=== PATIENT | female | born 1955 | race Caucasian/White ===

== ENCOUNTER 2018-08-01 09:41 | Emergency (ER) | payer SELFPAY ==
[2018-08-01 10:01] VITALS: BP 123/72
--- NOTE | 2018-08-01 12:37 | UC ---
Abdominal Pain Female HPI - HPI Summary HPI Summary: Patient arrived last night from [facility] to visit her sister. Reports she has had 5 days of worsening left lower quadrant pain that has now become more diffuse. Denies fever. Has had some nausea and left flank pain. No urinary symptoms. No blood per rectum. No diarrhea. Reports a history of recurrent diverticulitis. States she usually treats her symptoms conservatively and they resolve without intervention however occasionally she needs antibiotics. She usually takes doxycycline due to multiple antibiotic allergies and this works well for her. - History of Current Complaint Chief Complaint: UCAbdominalPain Stated Complaint: BOWEL ALONZO Time Seen by Provider: 08/01/18 12:16 Hx Obtained From: Patient, Family/Landscape Laborer - SISTER Onset/Duration: Gradual Onset, Lasting Days, Still Present Timing: Constant Severity Initially: Mild Severity Currently: Moderate Pain Intensity: 10 - SITTING COMFORTABLY IN EXAM ROOM IN NAD Pain Scale Used: 0-10 Numeric Radiates: Yes Radiates to: Flank Character: Sharp Aggravating Factor(s): Nothing Alleviating Factor(s): Nothing Associated Signs and Symptoms: Positive: Back Pain, Decreased Appetite, Nausea. Negative: Fever, Urinary Symptoms, Vomiting, Diarrhea Allergies/Adverse Reactions: Allergies Allergy/AdvReac Type Severity Reaction Status Date / Time latex Allergy Rash Verified 08/01/18 10:02 Penicillins Allergy Hives Verified 08/01/18 10:02 im injection fluids Allergy Rash Uncoded 08/01/18 10:03 most antibiotics Allergy ibs Uncoded 08/01/18 10:02 PMH/Surg Hx/FS Hx/Imm Hx GI/ History: Gastroesophageal Reflux, Diverticulitis Other GI/ History: IBS Cancer History: Breast Cancer - Surgical History Surgical History: Yes Surgery Procedure, Year, and Place: breast ca bilat mastectomy - Social History Alcohol Use: None Substance Use Type: None Smoking Status (MU): Never Smoked Tobacco Review of Systems All Other Systems Reviewed And Are Negative: Yes Constitutional: Positive: Negative ENT: Positive: Negative Respiratory: Positive: Negative Cardiovascular: Positive: Negative Gastrointestinal: Positive: Abdominal Pain, Nausea Genitourinary: Positive: Negative Physical Exam Triage Information Reviewed: Yes Appearance: Well-Appearing, No Pain Distress, Well-Nourished Vital Signs: Initial Vital Signs Temp 99.2 F 08/01/18 09:55 Pulse 60 08/01/18 09:55 Resp 16 08/01/18 09:55 BP 123/72 08/01/18 09:55 Pulse Ox 100 08/01/18 09:55 Laboratory Tests 08/01/18 12:46 POC Urine Color Karla POC Urine Clarity Cloudy POC Urine pH 6.5 POC Ur Specif [place] 1.015 POC Urine Protein Negative POC Ur Glucose (UA) Negative POC Urine Ketones Trace A POC Urine Blood 1+ A POC Urine Nitrite Negative POC Urine Bilirubin Negative POC Urine Urobilinogen 0.2 POC U Leukocyte Esteras Trace A Vital Signs Reviewed: Yes Eyes: Positive: Conjunctiva Clear ENT: Positive: Hearing grossly normal Neck: Positive: Supple, Nontender Respiratory Exam: Normal Cardiovascular Exam: Normal Abdomen Description: Positive: Soft, Other: - MILDLY TENDER PERIUMBILICAL AND LLQ REGIONS. NO REBOUND OR RIGIDITY. Negative: CVA Tenderness (R), CVA Tenderness (L), Distended, Guarding Bowel Sounds: Positive: Present Musculoskeletal: Positive: No Edema Neurological: Positive: Alert Psychological: Positive: Normal Response To Family, Age Appropriate Behavior Skin: Negative: Rashes Abd Pain Female Course/Dx - Course Course Of Treatment: BASED ON PATIENT'S HISTORY OF DIVERTICULITIS IN THE PAST WILL TREAT REQUESTED WITH DOXYCYCLINE. PATIENT ADVISED THIS IS NOT FIRST LINE FOR THIS CONDITION HOWEVER SHE REPORTS MULTIPLE ANTIBIOTIC ALLERGIES AND STATES THIS MEDICINE ALWAYS WORKS. DISCUSSED POSSIBILITY OF KIDNEY STONE GIVEN HEMATURIA AND FLANK PAIN HOWEVER PATIENT DECLINES CT SCAN TODAY. SHE STATES SHE WILL GO TO THE ER IF HER SYMPTOMS PERSIST OR WORSEN. - Differential Dx/Diagnosis Provider Diagnosis: LLQ abdominal pain Discharge - Sign-Out/Discharge Documenting (check all that apply): Patient Departure All imaging exams completed and their final reports reviewed: No Studies - Discharge Plan Condition: Stable Disposition: HOME Prescriptions: Doxycycline Monohydrate 1 cap PO BID #20 cap Patient Education Materials: Diverticulitis (ED) Referrals: No Primary Care Phys,NOPCP [Primary Care Provider] - Additional Instructions: WILL TREAT WITH DOXYCYCLINE REQUESTED FOR YOUR DIVERTICULITIS. URINE TEST TODAY SHOWED SOME BLOOD. GIVEN YOUR LEFT FLANK PAIN WE DISCUSSED OBTAINING A CT SCAN TO EVALUATE FOR KIDNEY STONE WHICH YOU HAVE DECLINED. STAY WELL HYDRATED. GO TO THE ER WITHOUT FAIL IF YOU DEVELOP WORSENING PAIN, NAUSEA, FEVER, BLOOD IN THE URINE OR STOOL OR ANY OTHER CONCERNING SYMPTOMS. FOLLOW-UP WITH YOUR PHYSICIAN BACK HOME IN [facility] WHEN YOU RETURN NEXT WEEK. - Billing Disposition and Condition Condition: STABLE Disposition: Home
== END 2018-08-01 13:09 | disposition home or self-care (01) ==
LOC: UCEAST 09:41
DX: R10.32 Left lower quadrant pain (principal); R11.0 Nausea; M54.9 Dorsalgia, unspecified; Z88.0 Allergy status to penicillin; Z91.040 Latex allergy status; Z88.8 Allergy status to other drugs, medicaments and biological substances; Z88.1 Allergy status to other antibiotic agents
CPT/HCPCS: 81003; 87086; 99202; G0463